=== PATIENT | female | born 1975 | race Caucasian/White ===

== ENCOUNTER 2018-01-17 08:50 | Emergency (ER) | payer OTHER ==
[2018-01-17 08:59] VITALS: BP 128/75; PULSE 91; TEMP 98.4; BMI 26.6
--- NOTE | 2018-01-17 09:14 | PDOC ---
History of Present Illness - General Chief Complaint: Urinary Problem Stated Complaint: URINARY PROBLEM Time Seen by Provider: 01/17/18 09:13 History Source: Patient Exam Limitations: No Limitations - History of Present Illness Initial Comments: 01/17/18 11:09 Pt. is a 42 y/o F who presents with three days of urinary burning and pain. Pt. states it hurts when she pees before and after. Admits to body aches. Denies fevers, chills, n/v/d. Past History - Travel Traveled outside of the country in the last 30 days: No Close contact w/someone who was outside of country & ill: No - Past Medical History Allergies/Adverse Reactions: Allergies Allergy/AdvReac Type Severity Reaction Status Date / Time No Known Allergies Allergy Verified 01/17/18 08:58 Home Medications: Ambulatory Orders Ondansetron HCl [Zofran] 4 mg PO TID PRN #12 tablet 08/16/16 Phenazopyridine HCl [Pyridium -] 100 mg PO TID #21 tablet 01/17/18 Sulfamethoxazole/Trimethoprim [Bactrim Ds Tablet] 1 each PO BID #28 tablet 01/17 COPD: No - Reproductive History Spontaneous : 0 - Suicide/Smoking/Psychosocial Hx Smoking Status: No Smoking History: Never smoked Number of Cigarettes Smoked Daily: 0 Drug/Substance Use Hx: No Substance Use Type: None Review of Systems - Review of Systems Able to Perform ROS?: Yes Comments:: 01/17/18 09:13 CONSTITUTIONAL: Absent: fever, chills, diaphoresis, generalized weakness, malaise, loss of appetite GASTROINTESTINAL: Absent: abdominal pain, abdominal distension, nausea, vomiting, diarrhea, constipation, melena, hematochezia GENITOURINARY: Present: dysuria, frequency, urgency Absent: hesitancy, hematuria, flank pain, genital pain MUSCULOSKELETAL: Absent: myalgia, arthralgia, joint swelling SKIN: Absent: rash, itching, pallor NEUROLOGIC: Absent: headache, focal weakness or paresthesias, dizziness, unsteady gait, seizure, mental status changes, bladder or bowel incontinence Is the patient limited Wallisian proficient: No *Physical Exam - Vital Signs Last Vital Signs Temp Pulse Resp BP Pulse Ox 98.4 F 91 H 18 128/75 99 01/17/18 08:56 01/17/18 08:56 01/17/18 08:56 01/17/18 08:56 01/17/18 08:56 - Physical Exam Comments: 01/17/18 09:13 GENERAL: Well developed, well nourished. Awake and alert. No acute distress. ABDOMINAL: Suprapubic tenderness. Soft. Non-distended. No rebound or guarding. No organomegaly. Normoactive bowel sounds. MUSCULOSKELETAL Normal range of motion at all joints. No bony deformities or tenderness. CVA tenderness R SKIN: Warm and dry. Normal capillary refill. No rashes. No jaundice. NEUROLOGICAL: Alert, awake, appropriate. Cranial nerves 2-12 intact. No deficits to light touch and temperature in face, upper extremities and lower extremities. No motor deficits in the in face, upper extremities and lower extremities. Normoreflexic in the upper and lower extremities. Normal speech. Toes are down- going bilaterally. Gait is normal without ataxia. Medical Decision Making - Medical Decision Making 01/17/18 11:16 Pt. is a 42 y/o F with no PMH who presents to the ED c/o urinary discomfort for three days. Urine with 3+ Leuks, (+) nitrite and over 200 WBC's. Pt with mild CVA tenderness, possibly early pylo? Pt afebrile, without vomiting. Will dc home with abx. Return precautions given. Pt understands all dc instructions and all questions were answered. *DC/Admit/Observation/Transfer Diagnosis at time of Disposition: UTI (urinary tract infection) Qualifiers: Urinary tract infection type: acute cystitis Hematuria presence: with hematuria Qualified Code(s): N30.01 - Acute cystitis with hematuria - Discharge Dispostion Disposition: HOME Condition at time of disposition: Stable Decision to Admit order: No - Prescriptions Prescriptions: Phenazopyridine HCl [Pyridium -] 100 mg PO TID #21 tablet Sulfamethoxazole/Trimethoprim [Bactrim Ds Tablet] 1 each PO BID #28 tablet - Referrals Referrals: Shana Bryant MD [Primary Care Provider] - - Patient Instructions Printed Discharge Instructions: DI for Urinary Tract Infection (UTI) Additional Instructions: You have a urinary tract infection. This caused by bacteria. Please drink plenty of fluids. Take your antibiotics as prescribed. Finish the entire dose even if you feel better. You may take Tylenol or Motrin as needed for pain Please follow up with your primary care doctor this week. Return to the emergency department if you have fevers, chills, nausea, vomiting , back pain, do not have improvement of your symptoms in 4-5 days or have any changes in your symptoms. Usted tiene cachorro infeccin del tracto urinario. [place] causado por bacterias. Por favor shanice muchos lquidos. [place] tata antibiticos segn lo prescrito. Termine toda la dosis incluso si se siente mejor. Puede mara Tylenol o Motrin segn sea necesario para el dolor Por favor, colt un seguimiento con lozoya mdico de atencin primaria esta semana. Regrese al departamento de emergencias si tiene fiebre, escalofros, nuseas, v mitos, dolor de espalda o tiene algn cambio en tata sntomas. Print Language: [place]LAND[place] - Post Discharge Activity Forms/Work/School Notes: Back to Work
[2018-01-17 09:50] LABS: URINE APPEARANCE CLOUDY; URINE BILIRUBIN NEGATIVE (<2.0 mg/dL); URINE COLOR YELLOW; URINE GLUCOSE (UA) NEGATIVE (NEGATIVE); URINE KETONE NEGATIVE (NEGATIVE); URINE NITRITE POSITIVE (NEGATIVE); URINE UROBILINOGEN NEGATIVE mg/dL (0.2-1.0)
[2018-01-17 09:53] LABS: URINE LEUK ESTERASE 3+ (NEGATIVE); URINE PROTEIN 2+ (NEGATIVE)
[2018-01-17 09:54] LABS: EPI CELLS RARE /HPF (FEW); URINE BACTERIA RARE /hpf (NONE SEEN); URINE HYALINE CAST 11 /lpf; URINE MUCUS RARE
--- NOTE | 2018-01-20 08:48 | PDOC ---
Patient Follow-up (Call Back) - Post ED Follow - Up Condition at time of discharge: Stable Disposition at time of original discharge: HOME Reason for Call Back: Abnwl. Microbiology (+ urine culture, resistant to cactrim , which patient was given Contacted patient who states she has ? flank pain but no fever or chills. Macrobid sent to pharmacy. Patient given strict return precautions)
== END 2018-01-17 10:57 | disposition home or self-care (01) ==
LOC: JERFT 08:50
DX: N30.01 Acute cystitis with hematuria (principal)
CPT/HCPCS: 81003; 81015; 84703; 87086; 87186; 99281-25

== ENCOUNTER 2022-08-20 21:10 | Emergency (ER) | payer OTHER ==
[2022-08-20 21:42] VITALS: BP 108/74; PULSE 102; RESP 19; TEMP 98.4; BMI 27.4
[2022-08-21] MEDS ORDERED: KETOROLAC TROMETHAMINE 30 MG/1 ML VIAL IM ONE (00:04)
[2022-08-21 00:33] LABS: URINE APPEARANCE CLEAR; URINE BILIRUBIN NEGATIVE (NEGATIVE); URINE COLOR YELLOW; URINE GLUCOSE (UA) NEGATIVE (NEGATIVE); URINE KETONE TRACE (NEGATIVE); URINE LEUK ESTERASE NEGATIVE (NEGATIVE); URINE NITRITE NEGATIVE (NEGATIVE); URINE PROTEIN NEGATIVE (NEGATIVE); URINE UROBILINOGEN 0.2 mg/dL (0.2-1.0)
[2022-08-21 00:36] LABS: HCG,QUALITATIVE URINE Negative
== END 2022-08-21 01:51 | disposition home or self-care (01) ==
LOC: JER 21:10
PROC: 3E023GC Introduction of Other Therapeutic Substance into Muscle, Percutaneous Approach (ICD-10-PCS; principal; 2022-08-20)
DX: J09.X2 Influenza due to identified novel influenza A virus with other respiratory manifestations (principal)
CPT/HCPCS: 0241U-QW; 81003; 84703; 87086; 87186; 99284-25

== ENCOUNTER 2025-01-27 08:34 | Emergency (ER) | payer OTHER ==
[2025-01-27 08:39] VITALS: BMI 26.6
[2025-01-27 09:20] LABS: ABSOLUTE IMMATURE GRANULOCYTES 0.01 x10^3/uL (0.0-0.031); BASOPHILS # 0.04 x10^3/uL (0.01-0.08); EOSINOPHILS # 0.27 x10^3/uL (0.04-0.36); HEMATOCRIT 41.7 % (34.1-44.9); HEMOGLOBIN 13.9 g/dL (11.2-15.7); MCHC 33.3 g/dl (32.2-35.5); MEAN CELL VOLUME 92.1 fl (79.4-94.8); MEAN PLT VOLUME 11.8 fl (9.4-12.3); MONOCYTE # 0.32 x10^3/uL (0.24-0.86); MONOCYTE % 7.1 % (4.7-12.5); PLATELET COUNT 217 x10^3/uL (182-369); RDW 11.7 % (12.2-17.1)
[2025-01-27] MEDS ORDERED: ACETAMINOPHEN INJECTION 100 ML ONE (09:23)
[2025-01-27] MEDS ORDERED: MAG HYDROX/AL HYDROX/SIMETH 30 ML UNIT-DOSE CUP ONE (09:24)
[2025-01-27] MEDS ORDERED: FAMOTIDINE 20 MG/50 ML IVPB 20 MG/50 ML MG IVPB ONE (09:24)
[2025-01-27] MEDS: MAG HYDROX/AL HYDROX/SIMETH 30 ML UNIT-DOSE CUP PO ONE (09:40)
[2025-01-27] MEDS: ACETAMINOPHEN 1000 MG/100 ML BAG IVPB ONE (09:40)
[2025-01-27] MEDS: FAMOTIDINE 20 MG/50 ML IVPB 20 MG/50 ML MG IVPB ONE (09:41)
[2025-01-27 09:43] LABS: CHLORIDE 112 mmol/L (98-107); POTASSIUM 4.1 mmol/L (3.5-5.1); SODIUM 144 mmol/L (136-145)
[2025-01-27 09:46] LABS: CALCIUM 9.5 mg/dL (8.5-10.1)
[2025-01-27 09:47] LABS: ALBUMIN 3.6 g/dl (3.4-5.0); ANION GAP 8 mmol/L (4-13); BLOOD UREA NITROGEN 14.9 mg/dL (7-18); CO2 24 mmol/L (21-32); GLUCOSE,RANDOM 101 mg/dL (74-106); MAGNESIUM 2.2 mg/dL (1.8-2.4)
[2025-01-27 09:50] LABS: CREATININE 0.9 mg/dL (0.55-1.3); SGOT/AST 15 U/L (15-37); SGPT/ALT 27 U/L (13-61)
[2025-01-27 09:51] LABS: BILIRUBIN,TOTAL 0.4 mg/dL (0.2-1); TOT PROT 6.7 g/dl (6.4-8.2)
[2025-01-27 09:53] LABS: ALK PHOS 73 U/L (45-117)
[2025-01-27 10:51] LABS: URINE APPEARANCE CLEAR; URINE BILIRUBIN NEGATIVE (NEGATIVE); URINE COLOR YELLOW; URINE GLUCOSE (UA) NEGATIVE (NEGATIVE); URINE KETONE NEGATIVE (NEGATIVE); URINE LEUK ESTERASE NEGATIVE (NEGATIVE); URINE NITRITE NEGATIVE (NEGATIVE); URINE PROTEIN NEGATIVE (NEGATIVE); URINE UROBILINOGEN 0.2 mg/dL (0.2-1.0)
[2025-01-27 12:38] VITALS: BP 103/65; PULSE 46; RESP 15; TEMP 97.2
[2025-01-27 12:45] LABS: HIV INTERPRETATION NEGATIVE (NEGATIVE)
[2025-01-27 16:06] LABS: HCV DIAGNOSTIC IN-HOUSE W/RFLX NON-REACTIVE (NONREACTIVE)
== END 2025-01-27 13:16 | disposition home or self-care (01) ==
LOC: JER 08:34
PROC: 3E033GC Introduction of Other Therapeutic Substance into Peripheral Vein, Percutaneous Approach (ICD-10-PCS; principal; 2025-01-27)
PROC: 3E033NZ Introduction of Analgesics, Hypnotics, Sedatives into Peripheral Vein, Percutaneous Approach (ICD-10-PCS; 2025-01-27)
DX: R07.2 Precordial pain (principal); R68.83 Chills (without fever); R11.0 Nausea; R39.89 Other symptoms and signs involving the genitourinary system; R10.9 Unspecified abdominal pain
CPT/HCPCS: 36415; 71046-TC-FY; 74176-TC; 76700-TC; 80053; 81003; 83690; 83735; 84484; 84702; 84703; 85025; 86803; 87086; 87389; 93005; 93010; 99285-25; J0131